=== PATIENT | female | born 1960 | race Caucasian/White ===

== ENCOUNTER 2019-01-30 09:39 | Day surgery (SDC) | payer BC ==
[~2019-01-30] VITALS: Ht 162.6 cm; Wt 49.3 kg
[~2019-01-30 09:39] MED LIST: BUPIVACAINE/PF-EPI 0.5% 1:200K ONE; NEOSPORIN OINT, 15GM ONE
[2019-01-30] MEDS ORDERED: LACTATED RINGERS 1,000 ML IV SCH (10:14)
[2019-01-30] MEDS ORDERED: HYDR-3240 PO (10:15)
[2019-01-30 10:38] VITALS: BP 98/67
[2019-01-30] MEDS ORDERED: MIDAZOLAM 1 MG/ML, 2ML ONE (11:37)
[2019-01-30] MEDS ORDERED: FENTANYL PF 250 MCG/5ML ONE (11:37)
[2019-01-30] MEDS ORDERED: PROPOFOL 10 MG/ML, 20ML ONE (11:38)
[2019-01-30] MEDS ORDERED: ROCURONIUM 10MG/ML,5ML ONE (11:39)
[2019-01-30] MEDS ORDERED: LIDOCAINE-MPF 2% ,5ML ONE (11:39)
[2019-01-30] MEDS ORDERED: WATER-INJECTION,STERILE 10 ML IV ONE (11:40)
[2019-01-30] MEDS ORDERED: CEFAZOLIN 1,000 MG ONE ×2 (11:40)
[2019-01-30] MEDS ORDERED: ROPIvacaine/PF 0.5%, 30 ML ONE (11:41)
[2019-01-30] MEDS ORDERED: SCOPOLAMINE PATCH, 1.5MG PATCH.TD72 TD ONE (12:00)
[2019-01-30] MEDS ORDERED: NEOSTIGMINE 1 MG/ML, 10ML ONE (12:08)
[2019-01-30] MEDS ORDERED: GLYCOPYRROLATE 0.4 MG/2 ML, 2ML ONE (12:08)
[2019-01-30] MEDS ORDERED: cloniDINE/PF 100 MCG/ML, 10 ML ONE (12:27)
[2019-01-30] MEDS ORDERED: PHENYLEPHRINE 10 MG/ML ONE (13:03)
[2019-01-30] MEDS ORDERED: DEXAMETHASONE 4 MG/ML, 1ML ONE ×2 (13:11)
[2019-01-30] MEDS ORDERED: ONDANSETRON 2MG/ML, 2ML ONE ×2 (13:40)
[2019-01-30] MEDS ORDERED: SUGAMMADEX 200 MG/2 ML IVPush ONE (13:54)
[2019-01-30] MEDS ORDERED: HALOPERIDOL 5 MG/ML IV PRN (14:00)
[2019-01-30] MEDS ORDERED: OXYcodone 5 MG/5 ML ORAL.SOL UDC PO PRN (14:00)
[2019-01-30] MEDS ORDERED: ACETAMINOPHEN 325 MG TABLET PO PRN (14:00)
[2019-01-30] MEDS ORDERED: HYDROmorphone 2 MG/ML, 1ML IVPush PRN (14:00)
[2019-01-30] MEDS ORDERED: FENTANYL PF 100 MCG/2ML IV PRN (14:00)
[2019-01-30] MEDS ORDERED: MEPERIDINE/PF 25MG/0.5ML IVPush PRN (14:00)
[2019-01-30] MEDS ORDERED: PROMETHAZINE 25 MG/ML, 1ML IV PRN (14:00)
[2019-01-30] MEDS ORDERED: OXYcodone 5 MG/5 ML ORAL.SOL UDC ONE (14:23)
== END 2019-01-30 16:20 | disposition home or self-care (01) ==
LOC: OUT 09:39
PROVIDERS: ATTEND Orthopaedic Surgery
DX: S42.002A Fracture of unspecified part of left clavicle, initial encounter for closed fracture (principal); X58.XXXA Exposure to other specified factors, initial encounter; Y93.89 Activity, other specified; Y92.89 Other specified places as the place of occurrence of the external cause; Y99.8 Other external cause status; Z88.1 Allergy status to other antibiotic agents; Z98.890 Other specified postprocedural states
CPT/HCPCS: 23515; 64415; 73000; 76000; C1713; J0690; J0735; J1100; J2250; J2370; J2405; J2704; J2710; J2795; J3010; J3490; J7120